=== PATIENT | female | born 1940 | race Caucasian/White ===

== ENCOUNTER 2016-10-01 10:57 | Emergency (ER) | payer MEDICARE, BC ==
--- NOTE | 2016-10-01 11:51 | ER PHYSICIAN DOCUMENTATION ---
Physician Documentation [facility] Name:Carrie Ernst Age:76 yrs Sex:Female :1940 Arrival Date:10/01/2016 Time:10:57 Bed4 Private MD:Gwendolyn Villasenor ED, Chris Disposition: 10/01/16 11:40 Discharged to Home/Self Care. Impression: Nasal Contusion, Anterior Epistaxis. - Condition is Good. - Discharge Instructions: EPISTAXIS (Adult), NASAL CONTUSION. - Medical Reconciliation form form. - Follow up: Private Physician; When: 7 - 10 days; Reason: Recheck today's complaints, Continuance of care. - Problem is new. - Symptoms are resolved. HPI: 10/01 11:00 This 76 yrs old Female presents to ER via Private Vehicle with complaints of cd Nasal Contusion and minor Nose Bleed. 11:00 The patient presents with a nose bleed, that is apparently anterior, from both nares, cd occurred after direct blow, and the bleeding resolved prior to arrival, nasal trauma, from a fall, appears to have no deformity, bleeding is small amount. Onset: The symptom(s)/episode began/occurred acutely, just prior to arrival. Associated signs and symptoms: Loss of consciousness: the patient experienced no loss of consciousness, Pertinent negatives: blurred vision, lightheadedness, nausea. Severity of symptoms: At their worst the symptoms were very mild in the emergency department the symptoms have resolved. Historical: - Allergies: Darvon; Macrobid; - Home Meds: 1. Hormones 2. Omeprazole Oral 3. Zoloft Oral 4. Ibuprofen Oral - PMHx: GERD; DEPRESSION; - PSHx: Hip replacement; TONSILLECTOMY; - Tetanus: < 10 years. - Ebola Screening: : No symptoms or risks identified at this time. . - Immunization history: Flu Vaccine < 1 year. - Social history: Smoking status: Patient states was never smoker of tobacco. Patient uses alcohol on a daily basis. Patient/guardian denies using marijuana. ROS: 11:12 Constitutional: cd 11:12 ENT: Positive for injury or acute deformity, abrasion, contusion, nose bleed, Negative for ear pain, sinus congestion, sinus pain. 11:12 Neuro: Negative for altered mental status, headache, loss of consciousness, syncope, near syncope, visual changes. 11:12 All other systems are negative. Exam: 11:12 Constitutional: This is a well developed, well nourished patient who is awake, alert, cd and in no acute distress. Head/Face: Normocephalic, minor nasal contusion and abrasion Eyes: Pupils equal round and reactive to light, extra-ocular motions intact. Lids and lashes normal. Conjunctiva and sclera are non-icteric and not injected. Cornea within normal limits. Periorbital areas with no swelling, redness, or edema. Chest/axilla: Normal chest wall appearance and motion. Nontender with no deformity. No lesions are appreciated. Cardiovascular: Regular rate and rhythm with a normal S1 and S2. No gallops, murmurs, or rubs. Normal PMI, no JVD. No pulse deficits. Respiratory: Lungs have equal breath sounds bilaterally, clear to auscultation and percussion. No rales, rhonchi or wheezes noted. No increased work of breathing, no retractions or nasal flaring. 11:12 Neuro: Awake and alert, GCS 15, oriented to person, place, time, and situation. cd Cranial nerves II-XII grossly intact. Motor strength 5/5 in all extremities. Sensory grossly intact. Cerebellar exam normal. Normal gait. 11:12 ENT: TM's: are normal, Nose: External nose: abrasion is noted, Nasal septum: is midline, no septal hematoma appreciated, Nasal mucosa: normal, bleeding, is noted from both nares, and is minimal, Dental exam: normal. 11:12 Neck: C-spine: appears grossly normal, no acute changes, Nexus Criteria: Nexus criteria: no cervical midline tenderness, patient is not intoxicated, mental status is normal, no focal/neurologic deficits, and no painful distracting injuries are present, vertebral tenderness, is not appreciated. Vital Signs: 11:18 BP 159 / 76; Pulse 75; Resp 16; Temp 98.4; Pulse Ox 92% ; Weight 90.72 kg; Height 5 ft. ma 7 in. (170.18 cm); Pain 1/10; 11:18 Body Mass Index 31.32 (90.72 kg, 170.18 cm) hi [place] Coma Score: 11:12 Eye Response: spontaneous(4). Verbal Response: oriented(5). Motor Response: obeys cd commands(6). Total: 15. MDM: 11:17 Patient medically screened. cd 11:30 Data reviewed: vital signs, nurses notes, old medical records, and as a result, I will cd discharge patient. Data interpreted: Pulse oximetry: on room air is 92 %. Interpretation: normal. Counseling: I had a detailed discussion with the patient and/or guardian regarding: the historical points, exam findings, and any diagnostic results supporting the discharge/admit diagnosis, the need for outpatient follow up, for a recheck, with the patient's primary care provider, to return to the emergency department if symptoms worsen or persist or if there are any questions or concerns that arise at home. Response to treatment: the patient's symptoms have resolved after treatment, the patient's condition has returned to base line, the patient is now symptom free, and as a result, I will discharge patient. Dispensed Medications: 11:35 Drug: Afrin Drops 0.05 % 1 application; Route: Intranasal; Site: both nares; hi 11:47 Follow up: Response: No adverse reaction hi Signatures: Lissette Mckeon, RN RN Bimal Bradley MD MD cd
--- NOTE | 2016-10-01 11:51 | ER NURSING DOCUMENTATION ---
Nurse's Notes [facility] Name:Carrie Ernst Age:76 yrs Sex:Female :1940 Arrival Date:10/01/2016 Time:10:57 Bed4 Private MD:Gwendolyn Villasenor Diagnosis:Nasal Contusion;Anterior Epistaxis Presentation: 10/01 11:00 Acuity: ARMINDA 3 ma 11:08 Presenting complaint: Patient states: Pt states she fell over ridge in driveway and ma struck her nose on the ground No LOC head or neck pain superficial very small lac X2 to bridge of nose No head neck or back pain Nose without deformity. Transition of care: Home. 11:08 Method Of Arrival: Private Vehicle ma Triage Assessment: 11:17 General: Appears in no apparent distress, Behavior is cooperative. Pain: Complains of ma pain in bridge of nose Pain currently is 1 out of 10 on a pain scale. Historical: - Allergies: Darvon; Macrobid; - Home Meds: 1. Hormones 2. Omeprazole Oral 3. Zoloft Oral 4. Ibuprofen Oral - PMHx: GERD; DEPRESSION; - PSHx: Hip replacement; TONSILLECTOMY; - Tetanus: < 10 years. - Ebola Screening: : No symptoms or risks identified at this time. . - Immunization history: Flu Vaccine < 1 year. - Social history: Smoking status: Patient states was never smoker of tobacco. Patient uses alcohol on a daily basis. Patient/guardian denies using marijuana. Screenin:21 Infectious Disease Risk None. Abuse screen: Denies threats or abuse. Nutritional ma screening: No deficits noted. Vital Signs: 11:18 BP 159 / 76; Pulse 75; Resp 16; Temp 98.4; Pulse Ox 92% ; Weight 90.72 kg; Height 5 ft. ma 7 in. (170.18 cm); Pain 1/10; 11:18 Body Mass Index 31.32 (90.72 kg, 170.18 cm) mt [place] Coma Score: 11:12 Eye Response: spontaneous(4). Verbal Response: oriented(5). Motor Response: obeys cd commands(6). Total: 15. ED Course: 10:59 Patient arrived in ED. ds 10:59 Gwendolyn Villasenor MD is Private Physician. ds 11:00 Lissette Mckeon RN is Primary Nurse. ma 11:00 Triage completed. ma 11:17 Bimal Wong MD is Attending Physician. cd 11:21 Valuables Remains with patient Patient has correct armband on for positive ma identification. Bed in low position. Call light in reach. Adult w/ patient. Administered Medications: 11:35 Drug: Afrin Drops 0.05 % 1 application; Route: Intranasal; Site: both nares; ma 11:47 Follow up: Response: No adverse reaction ma Outcome: 11:40 Discharge ordered by . cd 11:50 Discharged to home ma 11:50 Condition: stable 11:50 Instructed on discharge instructions, follow up and referral plans. medication usage, Demonstrated understanding of instructions, medications. 11:50 Patient left the ED. ma 10/02 12:20 Discharge F/U Call: Spoke with: patient. Overall Care on a scale of 1-10 with 10 ma being the best care, you rate our care as: Other comments: Pt states nasal swelling was minimal States pain is controlled States care was very good Signatures: Lissette Mckeon RN RN ma Srot, Lady, Reg Reg ds Bimal Wong MD MD cd
[2016-10-01] MEDS ORDERED: OXYMETAZOLINE 0.05% NASAL 15 SPRAYS/15 ML BTL NASAL ONE (11:52)
== END 2016-10-01 11:51 | disposition home or self-care (01) ==
LOC: ER 10:57
DX: S00.33XA Contusion of nose, initial encounter (principal); S00.31XA Abrasion of nose, initial encounter; R04.0 Epistaxis; W01.0XXA Fall on same level from slipping, tripping and stumbling without subsequent striking against object, initial encounter; Y92.014 Private driveway to single-family (private) house as the place of occurrence of the external cause; Y93.01 Activity, walking, marching and hiking; Z79.899 Other long term (current) drug therapy
CPT/HCPCS: 99282; 99283